=== PATIENT | female | born 1955 | race Asian ===

== ENCOUNTER 2016-12-22 09:18 | Emergency (ER) | payer MEDICAID, OTHER ==
[~2016-12-22] VITALS: Ht 157.5 cm; Wt 56.7 kg
[2016-12-22 09:32] VITALS: BP 118/52
== END 2016-12-22 12:18 | disposition home or self-care (01) ==
LOC: ER 09:24
DX: R51 Headache (principal); E78.5 Hyperlipidemia, unspecified
CPT/HCPCS: 70450